=== PATIENT | male | born 1990 | race African-American/Black ===

== ENCOUNTER 2017-02-01 04:42 | Observation (INO) | payer OTHER ==
[~2017-02-01] VITALS: Ht 160 cm; Wt 47.6 kg
[2017-02-01 04:45] VITALS: BP 144/83; TEMP 98.2
[2017-02-01 05:24] LABS: PLATELET COUNT 241 K/uL (142-355)
[2017-02-01 05:34] LABS: POTASSIUM 4.1 mmol/L (3.6-5.2); SODIUM 139 mmol/L (136-145)
[2017-02-01 08:15] VITALS: BP 118/80; TEMP 98.2
[2017-02-01 10:15] VITALS: BP 122/70
[2017-02-01 12:30] VITALS: BP 113/67
== END 2017-02-01 19:49 | disposition home or self-care (01) ==
LOC: ED 04:42 → MED/SURG 10:00
PROVIDERS: Emergency Medicine; ADMIT Family Medicine
PROC: 0DTJ4ZZ Resection of Appendix, Percutaneous Endoscopic Approach (ICD-10-PCS; principal; 2017-02-01)
DX: K35.89 Other acute appendicitis (principal)
CPT/HCPCS: 36415; 80053; 81000; 83605; 85027; 87088; 96361; 96365; 96375; 99220; 99284; G0378; J0132; J0330; J1170; J1885; J2001; J2250; J2405; J2543; J2704; J3010; J3490; J7120; S0028